=== PATIENT | male | born 1970 | race American Indian/Alaskan Native ===

== ENCOUNTER 2024-12-25 11:52 | Emergency (ER) | payer MEDICAID, SELFPAY ==
[2024-12-25 12:15] VITALS: BP 150/78; PULSE 72; RESP 16; TEMP 37.1; O2SAT 98; BMI 25.2
--- NOTE | 2024-12-25 12:57 | XR_ITS ---
Examination: Nasal bone series Technique: Debby right and left lateral nasal bone series 3 views Date and time: December 25, 2024 1342 hrs. Indications: Patient fell one week ago with injury to the nose, nose pain. Findings: Acute fracture bridge of the nose with minimal offset Orbital rims appear intact Impression: Acute nasal bone fracture
--- NOTE | 2024-12-25 12:58 | PD.EDFALL ---
ED Fall Injury RME/HPI General Chief Complaint: Fall Stated Complaint: Fall hit back of head, BAKER, nose edema Time Seen by Provider: 12/25/24 12:22 Arrival date/time: 12/25/24 11:52 RME / HPI RME / HPI Narrative: 54-year-old male patient with no significant past medical history, except for reconstruction of the nose when he was young, came in for evaluation regarding ground-level fall. Patient sustained a ground-level fall about 7 days ago, hitting his head posterior aspect and wound to the nasal bridge of the nose. Patient denies any LOC patient is ambulatory not taking any blood thinner. Patient is worried because has been having headache, described as dull ache, severity moderate. No vomiting no dizziness. Related Data Previous Rx's ?Medication ?Instructions ?Recorded cephalexin 500 mg capsule 500 mg PO Q8H 7 days #21 caps 12/25/24 Allergies Allergy/AdvReac Type Severity Reaction Status Date / Time No Known Allergies Allergy Verified 12/25/24 11:57 Review of Systems Review of Systems Narrative Review of Systems: Review of system reviewed and within normal limits except mentioned in HPI ED Exam Narrative Physical exam: VITAL SIGNS: Reviewed. GENERAL APPEARANCE: Alert and interactive, follows commands, no acute distress, HEAD AND FACE: Non-traumatic. Tenderness to the occipital area, with contusion ENT: PERRL, pink conjunctivitis, eyelid no trauma, Mucous membrane moist. Open wound on the bridge of the nose, no redness noted no drainage mild swelling NECK: Supple, nontender, no nuchal rigidity. CHEST: No tenderness, no crepitus, no paradoxical movement, no retractions. LUNGS: Clear, well ventilated, symmetric, no rales, no wheezing, no ronchi, no stridor, good breath sounds bilaterally. HEART: Regular rate, regular rhythm, no murmur, no gallops. ABDOMEN: Soft, positive bowel sounds, nondistended, no guarding, nontender, no rebound, no masses, RECTAL: Deferred. GENITAL: Deferred. NEUROLOGICAL: Gross motor function intact sensory function intact, Appropriate for age. MUSCULOSKELETAL: low back nontender, full range of motion. EXTREMITIES: Nontender, full range of motion. SKIN: Color pink, dry, no rash, no lacerations, no abrasions, no contusions. LYMPHATICS: Deferred. Course Quality Measures none Orders Category Date Time Status CT head/brain wo con Stat Exams 12/25/24 13:55 Completed XR nasal bones min 3V Stat Exams 12/25/24 12:57 Completed TET,DIP/PERT AC (Adult)-Tdap [Boostrix Adult (Tdap) Med 12/25/24 12:57 Discontinued Vacc] 0.5 ml IMI .ONCE ONE Vital Signs Vital signs: Vital Signs Temperature 98.8 F 12/25/24 12:15 Pulse Rate 72 12/25/24 12:15 Respiratory Rate 16 12/25/24 12:15 Blood Pressure 150/78 H 12/25/24 12:15 Pulse Oximetry (%) 98 12/25/24 12:15 Oxygen Delivery Method Room Air 12/25/24 12:15 Fall [facility] Narrative [facility] Narrative:: 54-year-old male patient with no significant past medical history, except for reconstruction of the nose when he was young, came in for evaluation regarding ground-level fall. Patient sustained a ground-level fall about 7 days ago, hitting his head posterior aspect and wound to the nasal bridge of the nose. Patient denies any LOC patient is ambulatory not taking any blood thinner. Patient is worried because has been having headache, described as dull ache, severity moderate. No vomiting no dizziness. X-ray of the nasal bone showed nondisplaced fracture of the nasal bone. CT scan of the head came back unremarkable. Patient will be sent home on Keflex for mild infection of the nasal wound. Patient appears nontoxic and hemodynamically stable .Decision to discharge the patient. The patient/family was given an opportunity to ask questions and understood their discharge instructions. Discharge instructions specifically included follow up provider and time frame, current and/or new medications and possible side effects, indications for sooner follow up or return to the emergency department, and the expected course of current diagnosis. Patient reports feeling better as well and giving evidence of significant clinical improvement, I believe patient is now a candidate for discharge. Patient data External records reviewed:: None Clinical information provided by:: patient Social determinants that could affect healthcare access:: none Patient has the following chronic illnesses:: None How is presenting disease/condition affected by chronic disease/condition?: no chronic disease Evaluation data The following diagnostics were reviewed and interpreted by me:: radiology exam(s) Lab and/or radiology exams considered but not ordered:: None Interpretation Summary: See results in MDM Medications / Prescriptions Medications or Prescriptions considered but not ordered:: None Medication administrations:: Medication Administration History Discontinued Medications Diphtheria/Tetanus/Acell Pertussis (Diphth,Pertuss(Acell),Tet Vac 0.5 Ml Syr- Adult) 0.5 ml IMi .ONCE ONE Stop: 12/25/24 12:58 Last Admin: 12/25/24 13:09 Dose: 0.5 ml Documented By: ZOILA [employer] Consultations Consultation(s) initiated? (list below): No Diagnosis Fall Differential Diagnosis: concussion with loss of consciousness (Wound check, nasal bone fracture, headache status post fall) Most likely diagnosis given after review of the tests above:: Wound check, nasal bone fracture, headache Admission Indicated Admission indicated?: not indicated Admission Request Was there a request for admission?: No Disposition Plan Disposition Plan: Discharge Discharge Attestation Discharge Attestation: The patient was given an opportunity to ask questions and understood the discharge instructions. Discharge instructions specifically effects, indications for sooner follow up or return to the emergency department, and the expected course of current diagnosis. Patient condition: Stable Discharge Plan Plan Patient Disposition: HOME (Self Care) Discharge Disposition comment: Stable Prescriptions/Referrals Prescriptions/Med Rec: New cephalexin 500 mg capsule 500 mg PO Q8H 7 Days Qty: 21 0RF Referrals: Fredy Pagan MD [Primary Care Provider] - In 1 week Problem List Clinical Impression: Visit for wound check, Fracture of nasal bone, Headache Patient/Caregiver Discharge Instructions Discharge Activity: activity as tolerated Education Materials: ED Facial Fracture Additional Instructions: Thank you for the opportunity for serving you today. You are stable for discharged . You are advised to: Follow-up with your PCP in 1 to 2 days Return to ED for worsening of symptoms Increase oral fluids Take medication as prescribed Daily dressing with triple antibiotic that you can buy outpatient daily as needed X-ray of your nasal bone showed nondisplaced nasal bone fracture. You can ask your doctor to refer you to a specialist as needed Print Language: Macedonian Stand Alone Forms: Geno Award Info., Patient Portal Info Letter PA/[facility] Supervising Physician ADITYA/[facility] Supervising Physician: MD Clayton
[2024-12-25] MEDS: DIPHTH,PERTUSS(ACELL),TET VAC 0.5 ML SYR- ADULT IMi (13:09)
--- NOTE | 2024-12-25 13:55 | XR_ITS ---
Examination: CT brain head without contrast. 2-D sagittal coronal reconstructions Date and time of exam:December 25, 2024 1422 hrs. Indications: Ground-level fall today with injury to the head, head pain CTDI: vol (mGy):51 DLP: (mGycm):1029 Technique: Multiple CT axial sections of the brain have been obtained, 5 mm slice thickness. Contrast has not been administered. 2-D sagittal, coronal reconstructions have been obtained Low dose protocols were performed. One or more of the following dose reduction techniques were used; automated exposure control, adjustment of the mA and/or KV according to patient size, use of iterative reconstruction technique. Findings: No significant ventricular enlargement. Intra-axial or extra-axial hemorrhage density is not seen. No mass effect or midline shift Basal cisterns are not remarkable. Fourth ventricle is midline. Cranial vault intact. Impression: Negative for acute hemorrhage, mass effect or midline shift
[2024-12-25 17:01] VITALS: BP 145/77; PULSE 70; RESP 16; TEMP 36.7; O2SAT 98
== END 2024-12-25 17:02 | disposition home or self-care (01) ==
PROVIDERS: Emergency Provider Emergency Medicine; PCP Family Medicine
DX: S02.2XXA Fracture of nasal bones, initial encounter for closed fracture (principal); S09.90XA Unspecified injury of head, initial encounter; W18.30XA Fall on same level, unspecified, initial encounter; Z23 Encounter for immunization
CPT/HCPCS: 70160; 70450; 90471; 90715; 99284